=== PATIENT | female | born 1980 | race Caucasian/White ===

== ENCOUNTER 2019-06-22 16:37 | Emergency (ER) | payer BC, SELFPAY ==
[2019-06-22] VITALS (11 sets, daily range): BP systolic 96–128; BP diastolic 57–81; PULSE 53–75; RESP 8–19; TEMP 36.9; O2SAT 96–100
[2019-06-22] MEDS: Normal Saline Flush 10 ML SYR IVP ×2 (16:53→17:16)
--- NOTE | 2019-06-22 17:00 | ED.GENADUL_ITS ---
Discharge Plan Disposition Patient Disposition: HOME Condition: Stable Discharge Details Chief Complaint: Palpitatns Clinical Impression: Chest pain Primary Care Provider: Mathew Molina ED Provider: Mik Jones Home Meds and New Rx's Prescriptions: No Action No Known Home Meds RF: 0 Discharge Instructions Instructions: Chest Pain (ED) Additional Instructions: follow up with your primary care provider within a week and discuss having outpatient monitoring if symptoms continue if you feel more ill or have worsening pain, shortness of breath or abdominal pa in return to the emergency department Medical Decision Making 39 yo female who denies chronic medical problems comes in with intermittent chest pain, shortness of breath, and tunnel vision that lasts 20-30 seconds and can't think of anything that makes it come and go. Denies loc fevers or recent travel outside the country, did drive to [place] last week. She arrives hd stable and in no distress, ekg shwing frequent pvc's otherwise no ischemic findings and tele showing occasional pvc. She has no leg swelling, jvd, and normal lung and heart sounds. Her symptoms could be afib, svt less likely vtach given no loc. will evaluate for acs with troponin, heart score is 1. Wells score is moderate given PE just as likely diagnosis so will obtain CTA to eval for this and monitor for arrythmias. No tearing back pain so doubt dissection and normal vascular exam labs, imaging and tele unremarkble other than occasional pvc, remains stable. Feel she is safe for d/c and advised f/u with pcp and return precautions given Differential Diagnosis acs, pvc's, afib, pe Imaging Data Radiologic Study: Attestation: I personally reviewed and interpreted this imaging study as follows: Imaging: CT Scan Radiologist's impression: no acute findings Lab Data Lab results reviewed: Yes I reviewed the patient's lab results. ECG Data Attestation: I personally reviewed and interpreted this ECG (s) as follows: Prior ECG tracings: not available for review Interpretation: sinus rhythm, frequent pvc's, pr 138, no acute st t wave ischemic findings HPI General Mode of arrival: ambulatory . Date/Time Provider Initiated Documentation: 06/22/19 16:38 . Limitations to Documentation: no limitations . Information obtained by: patient . History of Present Illness 39 year old F presents to the emergency department with the chief complaint of chest pain, described as moderate, Quality is described as aching, Patient started experiencing this week(s) (1) and it has been intermittent. No relieving factors improve symptom(s), No exacerbating factors reported . Patient did receive the following treatments prior to arrival, none Related Data Home Medications Medication Instructions Recorded Confirmed Unknown [No Known Home Meds] 06/22/19 06/22/19 Allergies Allergy/AdvReac Type Severity Reaction Status Date / Time codeine AdvReac Unknown nausea/vomi Unverified 06/22/19 16:51 ting General Stated Complaint: Palpitatns RAVEN: 3 Review of Systems Review of Systems All systems reviewed & are unremarkable except as noted in HPI and below Constitutional Denies chills, Denies fever(s) and Denies weakness Respiratory Denies cough Gastrointestinal Denies abdominal pain, Denies nausea and Denies vomiting Musculoskeletal Denies joint swelling Integumentary/Breasts Denies rash Neurologic Denies weakness PFSH Family History Father No problems noted. Grandmother Fibrocystic breast Other Asthma Diabetes Essential hypertension Hyperlipidemia Personal history of malignant neoplasm Social History Smoking/Tobacco Use Status: Former Tobacco Use Alcohol Intake: current Alcohol Intake frequency: 0-2 drinks per day Drug use: Occasionally Substance use type: marijuana Do you feel safe at home: Yes Do you feel safe in your relationship?: Yes Exam Const General: no acute distress Orientation: alert HENMT Head: normal to inspection Ears: external ears normal General nose exam: external nose normal Mouth: moist mucous membranes Eyes General: appearance normal, both eyes and all related structures Neck Neck: normal visual inspection Resp Effort & Inspection: normal respiratory effort and able to speak in complete sentences Cardio Rate: regular rate Skin General skin exam: no rashes or lesions noted Neuro General: alert and oriented x3 Extrem General: normal to inspection Psych Mental Status: mental status grossly normal Course Vital Signs Temperature 36.9 C 06/22/19 16:44 Pulse 66 06/22/19 16:44 Respiratory Rate 8 L 06/22/19 16:44 Blood Pressure 96/64 L 06/22/19 16:44 Pulse Oximetry 98 06/22/19 16:44 Temperature 36.9 C 06/22/19 16:44 Temperature Source Temporal Artery Scan 06/22/19 16:44 Pulse 66 06/22/19 16:44 Respiratory Rate 8 L 06/22/19 16:44 Respiratory Effort Non-Labored 06/22/19 16:52 Blood Pressure 96/64 L 06/22/19 16:44 Pulse Oximetry 98 06/22/19 16:44 Oxygen Delivery Method Room Air 06/22/19 16:44 Oxygen Flow Rate 0 06/22/19 16:44 Pain Level 0 06/22/19 16:44 Lab/Test Results Lab/Test Results: POC- Test(urine) Negative
[2019-06-22 17:14] LABS: Abs Immature Grans 0.02 k/cumm (0.0-0.09); Absolute Basophil Count 0.02 k/cumm (0.0-0.2); Absolute Eosinophil Count 0.13 k/cumm (0.0-0.7); Absolute Lymphocyte Count 2.56 k/cumm (1.2-3.4); Absolute Monocyte Count 0.65 k/cumm (0.11-0.7); Absolute Neutrophil Count 4.62 k/cumm (1.2-6.7); Basophils % 0.3; Eosinophils % 1.6; HCT 43.4 % (36.0-46.0); HGB 15.1 g/dL (12.0-15.5); Immature Grans % 0.3; Mean Corp. HGB Concentration 34.8 g/dL (32.0-36.0); Mean Corpuscular Hemoglobin 31.8 pg (27.0-33.0); Mean Corpuscular Volume 91.4 fL (80-95); Mean Platelet Volume 9.4 fL (8.0-11.0); Monocytes % 8.1; Neutrophils % 57.7; Platelet Count 312 x1000/uL (130-400); RBC 4.75 m/cumm (4.00-5.20); RBC Distribution Width 12.7 % (11.7-14.6)
[2019-06-22] MEDS: Omnipaque 350 MG/ML 100 ML BTL IJ (17:15)
[2019-06-22 17:21] LABS: Prothrombin Time 9.5 sec (9.3-11.0)
--- NOTE | 2019-06-22 17:24 | DI.CT_ITS ---
SYMPTOM/DIAGNOSIS: SHORTNESS OF BREATH AND CHEST PAIN CTA CHEST: 06/22/19 CT angiography was performed with multi slice acquisition and multi planar and 3D reconstruction. CT angiography of the chest was performed with intravenous infusion of 90 cc's of Omnipaque 350. Images obtained through the upper abdomen are unremarkable. There is no evidence of pulmonary embolic disease. There is no evidence of thoracic aortic dissection or aneurysm. No mediastinal or hilar adenopathy seen. Tracheobronchial tree appears intact. No pleural effusion or pulmonary consolidation. CONCLUSION: Normal CTA chest.
[2019-06-22 17:29] LABS: ALT 29 U/L (12-78); AST 14 U/L (15-37); Albumin 4.6 g/dL (3.4-5.0); Alkaline Phosphatase 57 U/L (46-116); Anion Gap 11.5 mmol/L (3-11); BUN 16 mg/dL (7-18); Bilirubin, Total 0.4 mg/dL (0.2-1.0); CO2 27.5 mmol/L (21.0-32.0); CREATININE 0.89 mg/dL (0.55-1.02); Calcium 9.3 mg/dL (8.5-10.1); Chloride 100 mmol/L (98-107); Glucose 97 mg/dL (70-100); NT-proBNP 56 pg/mL; Potassium 3.6 mmol/L (3.5-5.1); Sodium 139 mmol/L (136-145); Total Protein 8.4 g/dL (6.4-8.2)
[2019-06-22 17:34] LABS: Troponin I < 0.05 ng/mL (0.00-0.06)
--- NOTE | 2019-06-22 17:47 | DI.VRAD_ITS ---
EXAM: CT Angiography Chest With Contrast EXAM DATE/TIME: 06/22/2019 5:00 PM CLINICAL HISTORY: 39 years old, female; Other: Shortness of breath and chest pain TECHNIQUE: Imaging protocol: Axial computed tomographic angiography images of the chest with intravenous contrast using CT angiography protocol. Coronal and sagittal reformatted images were created and reviewed. 3D rendering: MIP reconstructed images were created and reviewed. Radiation optimization: All CT scans at this facility use at least one of these dose optimization techniques: automated exposure control; mA and/or kV adjustment per patient size (includes targeted exams where dose is matched to clinical indication); or iterative reconstruction. Contrast material: OMNIPAQUE 350;Contrast volume: 90 ml;Contrast route: IV; COMPARISON: No relevant prior studies available. FINDINGS: Pulmonary arteries: Normal. No pulmonary emboli. Aorta: Unremarkable. No aortic aneurysm. No aortic dissection. Lungs: There are few tiny areas of groundglass opacity at the dependent mid lungs. Pleural space: Unremarkable. No pneumothorax. No pleural effusion. Heart: Unremarkable. No cardiomegaly. No pericardial effusion. Lymph nodes: Unremarkable. No enlarged lymph nodes. Bones/joints: Unremarkable. No acute fracture. Soft tissues: Unremarkable. IMPRESSION: Minimal bilateral atelectasis with no evidence of pulmonary emboli. Dictated and Authenticated by: Mik Deras MD. Ordering:TOBY Houser MD
== END 2019-06-22 18:27 | disposition home or self-care (01) ==
PROVIDERS: Emergency Provider Emergency Medicine; PCP Emergency Medicine
DX: R07.9 Chest pain, unspecified (principal); R00.2 Palpitations; H53.8 Other visual disturbances
CPT/HCPCS: 36415; 71275; 80053; 81025; 93005; 99285; 83735; 83880; 84484; 85025; 85610; 85730; 93010; 99284; J3490

== ENCOUNTER 2019-06-24 10:33 | Outpatient (CLI) | payer BC, SELFPAY | END 2019-06-24 10:53 | PROVIDERS: PCP Emergency Medicine; Visit Provider Emergency Medicine | DX: I49.9 Cardiac arrhythmia, unspecified (principal); I49.3 Ventricular premature depolarization; I49.1 Atrial premature depolarization | CPT/HCPCS: 93225 ==

== ENCOUNTER 2019-06-27 13:08 | Outpatient (CLI) | payer BC, SELFPAY ==
--- NOTE | 2019-06-29 13:21 | HOLTER_ITS ---
HOLTER MONITOR DATE OF DICTATION June 29, 2019 STUDY INDICATION Arrhythmias. REQUESTING PROVIDER Not available. FINDINGS The patient was monitored for two days and 32 minutes. Baseline sinus rhythm. Average heart rate 73 beats per minute, range 47 to 136 beats per minute. Rare ectopy: 18 PVCs, no VT; 8 PACs, no SVT. No pauses greater than 3 seconds. No higher degree heart block. 3 patient events. None of these events correlated with arrhythmias. FINAL INTERPRETATION No significant arrhythmias. Yo Michelle M.D. CIARRA/jace T - 06/29/2019
== END 2019-06-27 13:28 ==
PROVIDERS: PCP Emergency Medicine; Visit Provider Emergency Medicine
DX: I49.9 Cardiac arrhythmia, unspecified (principal); I49.3 Ventricular premature depolarization; I49.1 Atrial premature depolarization
CPT/HCPCS: 93226

== ENCOUNTER 2019-06-29 15:29 | Outpatient (CLI) | payer BC, SELFPAY ==
[2019-06-29 16:53] LABS: TSH 2.95 uIU/mL (0.36-3.74)
[2019-06-29 17:14] LABS: ESR 9 mm/hr (0-20)
[2019-06-29 17:42] LABS: Ferritin 96 ng/mL (8-388)
[2019-07-01 12:13] LABS: Lyme Ab w Rflx to Lyme Confirm Negative
== END 2019-06-29 15:49 ==
PROVIDERS: PCP Emergency Medicine; Visit Provider Emergency Medicine
DX: I42.9 Cardiomyopathy, unspecified (principal); M25.50 Pain in unspecified joint; R00.2 Palpitations; E03.9 Hypothyroidism, unspecified
CPT/HCPCS: 36415; 85652; 82728; 84443; 86140; 86618

== ENCOUNTER 2019-07-05 08:57 | Outpatient (CLI) | payer BC, SELFPAY ==
--- NOTE | 2019-07-05 09:00 | MERGE_ITS ---
*[facility]* *[facility]* [address] [place] [address] Date of study: 07/05/2019 Transthoracic Echocardiography M-mode, complete 2D, complete spectral Doppler, and color Doppler *STUDY CONCLUSIONS* Summary: 1. Left ventricle: The cavity size was normal. Wall thickness was at the upper limits of normal. Systolic function was normal. The estimated ejection fraction was 60-65%. Wall motion was normal; there were no regional wall motion abnormalities. 2. Right ventricle: The cavity size was normal. Systolic function was normal. 3. Inferior vena cava: The vessel was patent and normal in size. The respirophasic diameter changes were in the normal range (greater than or equal to 50%), consistent with normal central venous pressure. *PATIENT PRESENTATION* Height: 160cm (63in ) S/D Pressure: 101 / 57 Weight: 70.3kg (154.7lb ) BSA: 1.79m^2 Test start time: 09:09 AM. Test stop time: 10:00 AM. CONSULTING Mathew Molina ORDERING Mathew Molina REFERRING Mathew Molina PERFORMING Unknown PERFORMING [facility] SENIOR [employer]OPLESO[employer] DEVELOPER RT Scott RDCS (R CT) *PROCEDURE DATA* Procedure information: This study was interpreted by [facility]. Pertinent images and digital data are archived for permanent storage and are available for subsequent review. No prior study was available for comparison. Study status: Routine. Transthoracic echocardiography. M-mode, complete 2D, complete spectral Doppler, and color Doppler. A Transthoracic Echocardiogram was performed. Scanning was performed from the parasternal, apical, subcostal, and suprasternal notch acoustic windows. Images were obtained using an [id number] cardiac ultrasound machine. Image quality was adequate. Study completion: The patient tolerated the procedure well. There were no complications. History: PMH: SOB PVC's. Cardiomyopathy i42.9. *CARDIAC ANATOMY* Left ventricle: The cavity size was normal. Wall thickness was at the upper limits of normal. Systolic function was normal. The estimated ejection fraction was 60-65%. Wall motion was normal; there were no regional wall motion abnormalities. Diastolic parameters were normal. Aortic valve: Trileaflet; normal thickness leaflets. Mobility was not restricted. Doppler: Transvalvular velocity was within the normal range. There was no stenosis. There was no significant regurgitation. VTI ratio of LVOT to aortic valve: 0.77. Valve area (VTI): 2.3cm^2. Indexed valve area (VTI): 1.3cm^2/m^2. Peak velocity ratio of LVOT to aortic valve: 0.74. Valve area (Vmax): 2.2cm^2. Indexed valve area (Vmax): 1.2cm^2/m^2. Mean velocity ratio of LVOT to aortic valve: 0.73. Valve area (Vmean): 2.2cm^2. Indexed valve area (Vmean): 1.2cm^2/m^2. Mean gradient (S): 4.2mm Hg. Peak gradient (S): 6.7mm Hg. Aorta: Aortic root: The aortic root was normal in size. Ascending aorta: The ascending aorta was normal in size. Mitral valve: Structurally normal valve. Mobility was not restricted. Doppler: Transvalvular velocity was within the normal range. There was no evidence for stenosis. There was trivial regurgitation. Valve area by pressure half-time: 4.6cm^2. Indexed valve area by pressure half-time: 2.6cm^2/m^2. Peak gradient (D): 2.5mm Hg. Left atrium: The atrium was normal in size. Right ventricle: The cavity size was normal. Systolic function was normal. Pulmonic valve: The pulmonary valve appears to be grossly normal. Doppler: Transvalvular velocity was within the normal range. There was no evidence for stenosis. There was trivial regurgitation. Tricuspid valve: Structurally normal valve. Doppler: Transvalvular velocity was within the normal range. There was no evidence for stenosis. There was trivial regurgitation. Pulmonary artery: Poorly visualized. Pulmonary systolic pressure was within the normal range, in the range of 20mm Hg to 25mm Hg. Right atrium: The atrium was normal in size. Pericardium: There was no pericardial effusion. Systemic veins: Inferior vena cava: Well visualized. The vessel was patent and normal in size. The respirophasic diameter changes were in the normal range (greater than or equal to 50%), consistent with normal central venous pressure. Baseline ECG: Normal sinus rhythm. Measurements Left ventricle Value Reference LV ID, ED, PLAX 4.3 cm 3.5 - 6.0 LV ID, ES, PLAX 3.1 cm 2.1 - 4.0 LV PW thickness, ED, PLAX 1.0 cm LV end-diastolic volume, 1-p A2C 69 ml LV ejection fraction, 1-p A2C 79 % LV end-diastolic volume, 1-p A4C 78 ml LV ejection fraction, 1-p A4C 68 % LV e', lateral 0.14 m/sec LV E/e', lateral 6 LV e', medial 0.116 m/sec LV E/e', medial 7 LV e', average 0.128 m/sec LV E/e', average 6 Ventricular septum Value Reference IVS thickness, ED, PLAX 1.1 cm LVOT Value Reference LVOT ID, A-P 2.0 cm LVOT area 3 cm^2 LVOT peak velocity, S 0.96 m/sec LVOT mean velocity, S 0.73 m/sec LVOT VTI, S 21.5 cm LVOT peak gradient, S 3.7 mm Hg LVOT mean gradient, S 2.3 mm Hg Stroke volume (SV), LVOT DP 65 ml Stroke index (SV/bsa), LVOT DP 36 ml/m^2 Aortic valve Value Reference Aortic valve peak velocity, S 1.3 m/sec Aortic valve mean velocity, S 1 m/sec Aortic valve VTI, S 28.0 cm Aortic mean gradient, S 4.2 mm Hg Aortic peak gradient, S 6.7 mm Hg VTI ratio, LVOT/AV 0.77 Aortic valve area, VTI 2.3 cm^2 Velocity ratio, peak, LVOT/AV 0.74 Aortic valve area, peak velocity 2.2 cm^2 Velocity ratio, mean, LVOT/AV 0.73 Aortic valve area, mean velocity 2.2 cm^2 Aortic valve area/bsa, mean velocity 1.2 cm^2/m^2 Aorta Value Reference Aortic root ID, ED 3.2 cm Ascending aorta ID, A-P, S 3.0 cm RVOT Value Reference RVOT VTI, S 16.9 cm Left atrium Value Reference LA ID, A-P, ES 2.3 cm LA ID/bsa, A-P 1.3 cm/m^2 <=2.2 LA volume/bsa, ES, 1-p A4C 20 ml/m^2 LA volume, ES, 2-p 30 ml LA volume/bsa, ES, 2-p 17 ml/m^2 LA/aortic root ratio 0.7 Mitral valve Value Reference Mitral E-wave peak velocity 0.79 m/sec Mitral A-wave peak velocity 0.53 m/sec Mitral deceleration time 165 ms 150 - 230 Mitral pressure half-time 48 ms Mitral peak gradient, D 2.5 mm Hg Mitral E/A ratio, peak 1.47 Mitral valve area, PHT, DP 4.6 cm^2 Pulmonary veins Value Reference Pulmonary vein peak velocity, S 0.6 m/sec Pulmonary vein peak velocity, D 0.79 m/sec Pulmonary vein velocity ratio, peak, 0.76 S/D Pulmonary vein A-wave reversal peak 0.27 m/sec velocity Tricuspid valve Value Reference Tricuspid regurg peak velocity 2.3 m/sec Tricuspid peak RV-RA gradient 20.5 mm Hg Right atrium Value Reference RA area, ES, A4C 12.6 cm^2 8.3 - 19.5 Legend: (L) and (H) vimal values outside specified reference range. I have personally reviewed the images and have reviewed and edited the reported findings. Electronically signed by Jose Reagan 07/05/2019 12:17
== END 2019-07-05 09:17 ==
PROVIDERS: PCP Emergency Medicine; Visit Provider Emergency Medicine
DX: I42.9 Cardiomyopathy, unspecified (principal); R06.02 Shortness of breath; I49.3 Ventricular premature depolarization
CPT/HCPCS: 93225; 93306

== ENCOUNTER 2019-07-07 14:57 | Outpatient (CLI) | payer BC, SELFPAY ==
--- NOTE | 2019-07-08 12:08 | HOLTER_ITS ---
HOLTER MONITOR DATE OF DICTATION July 08, 2019 24-Hour Holter Monitor INDICATIONS Cardiomyopathy. Baseline sinus rhythm. Average heart rate 75 beats per minute. Minimum heart rate 52 beats per minute. Max heart rate of 130 beats per minute. Rare isolated ventricular ectopy. No nonsustained VT. Rare isolated atrial ectopy. No SVT or atrial fibrillation. No significant pauses or kenzie arrhythmias. No diary entries. Overall sinus rhythm with very rare isolated ectopy. Jose Reagan M.D. BRITTNEY/jace T - 07/08/2019
== END 2019-07-07 15:17 ==
PROVIDERS: PCP Emergency Medicine; Visit Provider Emergency Medicine
DX: I42.9 Cardiomyopathy, unspecified (principal)
CPT/HCPCS: 93226

== ENCOUNTER 2021-03-07 10:35 | Outpatient (CLI) | payer OTHER, SELFPAY ==
--- NOTE | 2021-03-07 10:30 | RT.EKG_ITS ---
APPROVED REPORT Exam: Resting ECG Patient Location: O HR:52 bpm ECG Measurements Heart Rate 52 AXIS AZ 139 P 33 QRSd 85 QRS 51 QT 428 T 30 QTc 399 Conclusion Sinus bradycardia...rate< 60 Low voltage, precordial leads...precordial leads <1.0mV
== END 2021-03-07 10:36 | disposition home or self-care (01) ==
LOC: DI.CM 10:37
PROVIDERS: PCP Emergency Medicine; Visit Provider Nurse Practitioner Family
DX: R00.2 Palpitations (principal)
CPT/HCPCS: 93010

== ENCOUNTER 2021-03-13 15:47 | Outpatient (REF) | payer OTHER, SELFPAY ==
--- NOTE | 2021-03-13 15:10 | PAPFT_PTH ---
PATIENT: Lauro Regan LOC: [facility] U#:[id number] AGE/SX: 40/F ROOM: RE03/13/[address]: Sandra Jones NP : 1980 BED: DIS: 03/13/2021 SPEC #: [id number] RECD: 03/14/21 12:39 STATUS: FRANKLIN REJoselin #: [id number] MELANI: 03/13/21 15:[address]: Sandra Jones NP DEPT: [facility] Cytology RECD BY: Belem Cabrera ENTERED: 03/14/21 12:39 SP TYPE: PAPFT OTHR DR: Mathew Molina, DO Tissues: 1 - CX/ENDOCX FOR PAP SMEARS Procedures: PAP THIN PREP/UVM Screening HPV DNA PROBE Comments: [id number]
== END 2021-03-13 15:48 | disposition home or self-care (01) ==
LOC: LBN 15:47
PROVIDERS: PCP Emergency Medicine; Visit Provider Nurse Practitioner Women's Health
DX: Z12.4 Encounter for screening for malignant neoplasm of cervix (principal); Z87.410 Personal history of cervical dysplasia; R87.612 Low grade squamous intraepithelial lesion on cytologic smear of cervix (LGSIL); Z11.51 Encounter for screening for human papillomavirus (HPV)
CPT/HCPCS: 88142; 87624

== ENCOUNTER 2021-04-04 02:38 | Outpatient (CLI) | payer OTHER, SELFPAY ==
[2021-04-04 14:22] LABS: TSH (W/Ref FT4) 0.57 uIU/mL (0.36-3.74)
[2021-04-04 18:24] LABS: FSH 24.8 mIU/mL (See Note)
== END 2021-04-04 02:39 | disposition home or self-care (01) ==
LOC: LBO 02:38
PROVIDERS: PCP Emergency Medicine; Visit Provider Nurse Practitioner Women's Health
DX: N92.5 Other specified irregular menstruation (principal); R00.2 Palpitations
CPT/HCPCS: 36415; 83001; 84443

== ENCOUNTER 2021-04-04 13:26 | Outpatient (REF) | payer OTHER, SELFPAY ==
--- NOTE | 2021-04-04 13:15 | ENDO_PTH ---
PATIENT: Lauro Regan LOC: [facility] U#:[id number] AGE/SX: 40/F ROOM: RE04/04/[address]: Syeda South DO : 1980 BED: DIS: 04/04/2021 SPEC #: [id number] RECD: 04/04/21 17:45 STATUS: FRANKLIN REQ #: [id number] MELANI: 04/04/21 13:[address]: Syeda South DEPT: Surgical Specimen RECD BY: Belem Cabrera ENTERED: 04/04/21 17:46 SP TYPE: Endo OTHR DR: Mathew Molina DO Tissues: 1 - ENDOCERVICAL BX/CURRETTE 2 - CERVICAL BIOPSY Procedures: GROSS AND MICRO LEVEL 4 Comments: [id number]
== END 2021-04-04 13:27 | disposition home or self-care (01) ==
LOC: LBN 13:26
PROVIDERS: PCP Emergency Medicine; Visit Provider Obstetrics & Gynecology
DX: R87.612 Low grade squamous intraepithelial lesion on cytologic smear of cervix (LGSIL) (principal); N87.9 Dysplasia of cervix uteri, unspecified
CPT/HCPCS: 88305

== ENCOUNTER 2021-04-22 01:37 | Outpatient (CLI) | payer OTHER, SELFPAY ==
--- NOTE | 2021-04-22 06:45 | DI.US_ITS ---
Exam(s) US PELVIS TRANSVAGINAL EXAM: US PELVIS TRANSVAGINAL CLINICAL HISTORY: Abnl uterine bleeding,frequent menstration,n92.6 TECHNIQUE: Ultrasound of the pelvis was performed both transabdominal and transvaginal. COMPARISON: Prior pelvic ultrasound 11/29/2007 was reviewed FINDINGS: UTERUS: Nongravid and anteverted Measures 8 cm length x 4.7 cm AP x 5 point cm wide. There is a small anterior fundal fibroid noted measuring approximately 10 x 6 x 7 millimeters Endometrial thickness measures 5-6 mm. There is no fluid in the endometrial canal. CERVIX: There are no obvious nabothian cysts. RIGHT OVARY: Measures 2.2 x 1.1 x 1.3 cm Contains 2 adjacent cysts. Largest measuring 13 x 11 x 12 millimeters LEFT OVARY: Measures 4.9 x 3.2 x 2.8 cm Contains a larger cyst measuring 2.9 x 2.8 x 2.7 cm. Vascular flow is demonstrated in both ovaries. CUL-DE-SAC: No free fluid evident. IMPRESSION: 1. Bilateral ovarian cysts. The largest is in the left ovary and measures 2.9 x 2.8 x 2.7 cm smaller cysts are noted in the opposite-right ovary. 2. There is a solitary 1 cm uterine fundal fibroid. Endometrial stripe thickness is within normal li mits. There is no fluid in the endometrial canal. 3. No free fluid evident in the adnexal regions and cul-de-sac. DATA REPOSITORY:
--- NOTE | 2021-04-22 09:02 | DI.MAMMO_ITS ---
Exam(s) MAMMO SCREENING EXAM: MAMMO SCREENING CLINICAL HISTORY: screening,z12.39. TECHNIQUE: Bilateral full field digital CC and MLO mammographic images were obtained with 3D tomosyn thesis and utilizing computer aided detection (CAD). COMPARISON: This baseline mammogram on this 40-year-old patient. FINDINGS: There are no significant spiculated masses nor malignant appearing microcalcification groups. There is no significant architectural distortion nor skin thickening-retraction. IMPRESSION: No radiographic evidence of malignancy. BI-RADS Category 1 - Negative Breast Density - Category B - Scattered areas of fibroglandular density Breast density Category C or D implies that the patient has dense breast tissue. Dense breast tissue can make it harder to find cancer on a mammogram. Dense breast tissue is also associated with an incr eased risk of breast cancer. This information about the result of the mammogram report was provided to the patient to raise their awareness. Use this report when you speak with the patient about their risks for breast cancer, which includes their family history. At that time, you may recommend additional screening tests (Ultrasoun d or MRI) as these tests may add significant information. A negative radiographic report should not delay biopsy if a dominant or clinically suspicious mass is present. Up to ten percent of cancers are not identified on mammography. A negative report may reinforce clinical impression. Adenosis and dense breasts may obscure an underlying neoplasm. False positive reports average 6 to 10%. Patient will receive a letter notifying them of these results.
== END 2021-04-22 01:57 ==
PROVIDERS: PCP Emergency Medicine; Visit Provider Nurse Practitioner Women's Health
DX: Z12.31 Encounter for screening mammogram for malignant neoplasm of breast (principal); N92.6 Irregular menstruation, unspecified; N93.8 Other specified abnormal uterine and vaginal bleeding; N83.291 Other ovarian cyst, right side; N83.292 Other ovarian cyst, left side; D25.9 Leiomyoma of uterus, unspecified
CPT/HCPCS: 77063; 77067; 76830; 76856

== ENCOUNTER 2021-05-06 09:48 | Outpatient (RCR) | payer OTHER, SELFPAY ==
--- NOTE | 2021-05-06 15:45 | HOLTER_ITS ---
APPROVED REPORT Conclusion This is a 48-hour Holter monitor ordered for the indication of palpitations. Patient was in normal sinus rhythm for the majority recording with an average heart rate of 70 bpm. There were no episodes of ventricular tachycardia and rare PVCs. There was one episode of supraventricular tachycardia lasting a total of 5 beats. This episode was s ymptomatic. There were rare PACs. There were no episodes of atrial fibrillation, no pauses greater than 3 seconds and no evidence of hi gh degree heart block. There were 5 patient triggered events. One was associated with a single episode of SVT and another w ith a singular PAC.
== END 2021-05-08 23:59 | disposition home or self-care (01) ==
LOC: RT 09:48
PROVIDERS: PCP Emergency Medicine; Visit Provider Internal Medicine Cardiovascular Disease
DX: R00.2 Palpitations (principal); I47.1 Supraventricular tachycardia; I47.2 Ventricular tachycardia; I49.1 Atrial premature depolarization
CPT/HCPCS: 93225; 93226

== ENCOUNTER 2021-10-11 06:24 | Day surgery (SDC) | payer OTHER, SELFPAY ==
--- NOTE | 2021-10-10 17:03 | PDOC.DSDIS_ITS ---
Discharge Plan Disposition Patient Disposition: HOME Condition: Good Discharge Details Reason For Visit: colon scope Attending Provider: Cat Muniz Primary Care Provider: Mathew Molina Home Meds and New Rx's Prescriptions: Continued metoprolol succinate [Toprol XL] 25 mg tablet extended release 24 hr 12.5 mg PO DAILY Qty: 45 RF: 4 ibuprofen 200 mg tablet 400 mg PO Q6H PRNRF: 0 Discontinued bisacodyl [Dulcolax (bisacodyl)] 5 mg tablet,delayed release (DR/EC) 5 mg PO ONCE Qty: 4 RF: 0 Discharge Instructions Additional Instructions: DSU Colonoscopy Post- Op Instructions Instructions for Everyone who is given Anesthesia: For your safety, please do the following for the next twenty-four (24) hours: *Do Not operate a motor vehicle (car, truck, motorcycle, etc.) *Do Not drink alcoholic beverages or use any recreational drugs for the first 24 hours or while taking pain medications. The medications in your body may have a reaction that can be dangerous. *Do Not make any important decisions or sign any important papers. Findings: Normal Follow up:Repeat CE every 5 yrs secondary to family Hx 1. No lifting over 20 pounds or strenuous activity for the first 24 hours after your procedure. After 24 hours there are no restrictions on your activity but you may feel fatigued for a few days. 2. After you arrive home you may have a light meal and return to your normal di et as you can tolerate it without feeling sick to your stomach. 3. You may have a bloated, gaseous feeling in your belly (abdomen) after a colonoscopy. Passing gas and belching will help. Walking or lying down on your left side with your knees flexed may relieve the discomfort. Call the office at [phone] (Office) or [phone] (Hospital) right away if you notice any of the following: a.Vomiting of blood or ?coffee ground stools?. b.Rectal bleeding 1Tbsp, blood clots or continuous bleeding. c.Severe belly (abdominal) pain. d.A hard distended belly (abdomen) and an inability to pass gas. 4. Please don?t expect to have a normal BM (bowel movement) for 2-3 days after your procedure. 5. If there are questions regarding the findings of your procedure, please contact your doctor 6. If you are unable to contact your doctor with a problem, contact the hospital at [phone]. 7. Continue all your regular medications unless directed otherwise. I understand the above instructions and have no questions. Signature of Patient or Adult Escort Name of Responsible Adult Escort Signature of Nurse Date/Time Activity:: see above Diet:: see above Discharge Orders Discharge Orders: Discharge Order (Routine); Ordered 10/10/21 Ordered By: Cat Muniz DS: Diagnosis Discharge Diagnosis (1) Family history of malignant neoplasm of colon in first degree relative diagnosed when younger than 60 years of age: Status: Acute (2) IBS (irritable bowel syndrome): Status: Chronic
--- NOTE | 2021-10-10 17:06 | W.COLOREPORT ---
Colonoscopy Report Date of procedure: 10/11/21 Pre-op diagnosis general: family hx of CRC <60/IBS Surgeon: Cat Muniz Anesthesia Type: General:No Airway Prep: Miralax/Dulcolax Retraction Time: 8 Procedure Description: After informed consent was obtained the patient was taken to the procedure room and placed in a left decubitous position. Monitors were applied and a time out was done. The patients name, date of , procedure, allergies to medications and metal in their body was reviewed. The patient was then sedated. Once sedated and comfortable a rectal exam was done. External exam was normal. Internal exam revealed a normal sphincter tone and no palpable masses. The scope was then introduced and retrofelexed. No internal hemorrhoids were identified. The scope was then advanced to the cecum w/out difficulty. The TI and appendiceal orifice were identified. The prep was . The scope was then slowly retracted over 8 minutes back into the rectum. There are no polyps or AVMs. The mucosa is pink and healthy. She is starting to develop diverticula in the sigmoid colon. The scope was removed and the patient was woken up and taken back to Same day surgery in stable condition. The patient tolerated the procedure well and there were no immediate complications. Follow up: The patient should follow up in 5 years, unless they develop changes in bowel habits or other new gastrointestinal complaints.
[2021-10-11 06:28] VITALS: BP 108/66; PULSE 66; RESP 16; TEMP 36.3; O2SAT 98
[2021-10-11] MEDS: Lactated Ringers 1,000 ML 80 ML IV (06:59)
--- NOTE | 2021-10-11 07:02 | ANES.PREOP_ITS ---
General Info Date of Service Date Performed: 10/11/21 Height: 5 ft 3 in Weight: 75.4 kg Body Mass Index (BMI): 29.4 Surgical Procedure: Operation Date: 10/11/21 07:35 Proposed Procedures Side Surgeon cam Muniz DO Pre-Op Diagnosis Post-Op Diagnosis IBS Meds Allergies and Home Medications Allergies Allergy/AdvReac Type Severity Reaction Status Date / Time codeine AdvReac Intermediate nausea/vomi Verified 10/11/21 06:41 ting Home Medication Medication Instructions Recorded metoprolol succinate 25 mg 12.5 mg PO DAILY #45 tab 10/07/19 tablet,extended release 24 hr ibuprofen 200 mg tablet 400 mg PO Q6H PRN tab 09/27/21 Current Visit Medications: Current Medications Generic Name Dose Route Start Last Admin Trade Name Freq PRN Reason Stop Dose Admin Hyoscyamine Sulfate 0.125 mg 10/10/21 17:02 Hyoscyamine 0.125 Mg Sl/Oral/Chew SL DIRECTED PRN Ringer's Solution 1,000 mls @ 80 mls/hr 10/11/21 06:00 10/11/21 06:59 IV 11/09/21 23:59 80 mls/hr INFUSION HEBERT Administration IV Miscellaneous Supplies 1 each 10/11/21 06:00 Iv Access IV 11/09/21 23:59 DIRECTED HEBERT Ondansetron HCl 4 mg 10/10/21 17:02 Ondansetron 4 Mg/2 Ml Vial IVP Q4H PRN PRN Nausea / Vomiting Sodium Chloride 0 ml 10/11/21 06:00 Normal Saline Flush 10 Ml Syr IV 11/09/21 23:59 PRN PRN Sodium Chloride 0 ml 10/11/21 06:00 Normal Saline 10 Ml Vial IJ 11/09/21 23:59 DIRECTED PRN Sterile Water 0 ml 10/11/21 06:00 Water,Injection,Sterile 10 Ml Vial IJ 11/09/21 23:59 DIRECTED PRN PFSH Active Problems Active Problems: Problem Status Onset Code IBS (irritable bowel syndrome) K58.9 Primary insomnia 07/10/16 F51.01 Personal history of cervical dysplasia 08/26/13 Z87.410 LGSIL (low grade squamous intraepithelial dysplasia) History of surgical procedure Z98.890 History of appendectomy Z90.49 Family history of malignant neoplasm of colon in first degree relative diagnosed when younger than 60 years of age 0907/10/16 Z80.0 Cervical intraepithelial neoplasia grade III with severe dysplasia 10/27/11 D06.9 TIARA II (cervical intraepithelial neoplasia II) N87.1 Anxiety 07/10/16 F41.9 Status post LEEP (loop electrosurgical excision procedure) of cervix Z98.890 Palpitations R00.2 Menstrual abnormality N92.6 Colon cancer screening Z12.11 PVCs (premature ventricular contractions) I49.3 Medical History Active Problem List IBS (irritable bowel syndrome) (Chronic) Primary insomnia (Acute 07/10/16) Personal history of cervical dysplasia (Acute 08/26/13) LGSIL (low grade squamous intraepithelial dysplasia) (Acute) History of surgical procedure (Acute) History of appendectomy (Acute) Family history of malignant neoplasm of colon in first degree relative diagnosed when younger than 60 years of age (Acute 07/10/16) Cervical intraepithelial neoplasia grade III with severe dysplasia (Acute 10/27/11) TIARA II (cervical intraepithelial neoplasia II) (Acute) Anxiety (Acute 07/10/16) Status post LEEP (loop electrosurgical excision procedure) of cervix (Acute) Palpitations (Acute) Menstrual abnormality (Acute) Colon cancer screening (Acute) PVCs (premature ventricular contractions) (Acute) Medical History Cat scratch fever 1983 TIARA II (cervical intraepithelial neoplasia II) TIARA III (cervical intraepithelial neoplasia III) IBS (irritable bowel syndrome) Medical History Comments:: Pt. states her grandfather has a real hard time going full under anesthesia. Pt. also states she is a hard IV stick, [facility] has gone into my foot x2 Surgical History Surgical History Appendectomy (~1995) Cervical Conization/LEEP Colonoscopy - IV Sedation Hysteroscopy Tobacco Smoking/Tobacco Use Status: Former Tobacco Use Alcohol Alcohol Intake: current Alcohol intake frequency: 0-2 drinks per day Substance Use Substance use: Occasionally Substance use type: marijuana Prental History History 1 Para 1 Hx # Term Pregnancies Multiple births Hx # Pregnancies Ectopic pregnancies AB induced Hx Number of Living Children AB spontaneous Vital Signs and Lab Results Vital Signs Most Recent Vital Signs in EMR: Most Recent Vital Signs Temp Pulse Resp BP Pulse Ox 36.3 C L 66 16 108/66 98 10/11/21 06:28 10/11/21 06:28 10/11/21 06:28 10/11/21 06:28 10/11/21 06:28 Point of Care Results Point of Care Results: POC- Test(urine) Negative 10/11/21 06:40 Lab Results Blood Type / Crossmatch: No Data to Display Complete Blood Count: No Data to Display Complete Metabolic Panel: No Data to Display Liver Function Panel: No Data to Display Coagulation Panel: No Data to Display Cardiac Panel: No Data to Display Arterial Blood Gas: No Data to Display Venous Blood Gas: No Data to Display Pancreas Panel: No Data to Display Thyroid Panel: No Data to Display Infectious Disease: No Data to Display Blood Cultures: No Data to Display Toxicology Panel: No Data to Display Panel: No Data to Display Imaging and Studies Imaging and Studies EKG Summary: Conclusion Sinus bradycardia...rate< 60 03/07/21 Echocardiogram Summary: STUDY CONCLUSIONS* Summary: 1. Left ventricle: The cavity size was normal. Wall thickness was at the upper limits of normal. Systolic function was normal. The estimated ejection fraction was 60-65%. Wall motion was normal; there were no regional wall motion abnormalities. 2. Right ventricle: The cavity size was normal. Systolic function was normal. 3. Inferior vena cava: The vessel was patent and normal in size. The respirophasic diameter changes were in the normal range (greater than or equal to 50%), consistent with normal central venous pressure. 07/05/19 Anesthesia Assessment and Plan Anesthesia History Personal History: No History of Anesthesia Complications Family History: Other (Grandfather awareness under anesthesia) Exercise Tolerance Exercise Tolerance: Metabolic Equivalents>4 Pertinent Negatives Pertinent Negatives: No Symptoms of GERD, No Major Cardiovascular Symptoms or Complaints, No Major Pulmonary Symptoms or Complaints and No History of CVA/TIA Cardiac & Pulmonary Exam Cardiac Exam: Normal S1/S2 Heart Sounds Pulmonary Exam: Clear Bilateral Breath Sounds Implantable Cardiac Device Does patient have a Pacemaker or an ICD?: No Airway Exam Known Difficult Airway: No Mallampati Class: 1 Mouth Opening: Normal (> 3cm) Thyromental Distance: Greater than 3 cm Neck Range of Motion: Full ROM Neck Circumference: Normal Teeth Condition: Normal Dentition ASA Classification ASA Score: ASA 2 Emergency Case?: No NPO Status NPO Status: NPO Clears >2 hours, Solids >8 hours Status Status: Negative HCG Anesthesia Plan Resuscitation Status: Full Code Anesthesia Technique: General Anesthesia Airway Planned: Natural Airway Monitors Used: Standard Monitors
[2021-10-11 07:22] VITALS: BMI 29.4
[2021-10-11 08:01] VITALS: BP 93/54; PULSE 64; RESP 16; TEMP 36.4; O2SAT 98
--- NOTE | 2021-10-11 08:13 | W.ANESPOSTOP ---
Postoperative Evaluation Date, Time and Location Date Performed: 10/11/21 Time Performed: 08:13 Patient Location: Day Surgery Unit Vital Signs Most Recent Imported Vital Signs: Most Recent Vital Signs Temp Pulse Resp BP Pulse Ox 36.4 C L 64 16 93/54 L 98 10/11/21 08:01 10/11/21 08:01 10/11/21 08:01 10/11/21 08:01 10/11/21 08:01 Pain Score Most Recent Pain Score: Most Recent Pain Score Pain Level 0 10/11/21 08:01 Assessment Mental Status: Awake (Alert & Oriented to Patient Baseline) Airway and Respiratory Function: Patent airway with normal (patient baseline) respiratory exam Cardiovascular Function: Hemodynamically Stable Hydration Status: Adequately Hydrated Nausea & Vomiting: No Nausea or Vomiting Pain: Pt. Denies Any Pain Peripheral Nerve Block: Patient did not receive a nerve block
[2021-10-11 08:29] VITALS: BP 107/70; PULSE 56; RESP 16; TEMP 36.4; O2SAT 100
== END 2021-10-11 08:44 | disposition home or self-care (01) ==
LOC: SUR 06:25
PROVIDERS: PCP Emergency Medicine; Visit Provider Surgery
PROC: 0DJD8ZZ Inspection of Lower Intestinal Tract, Via Natural or Artificial Opening Endoscopic (ICD-10-PCS; CPT 45378; principal; 2021-10-11 07:30)
DX: Z12.11 Encounter for screening for malignant neoplasm of colon (principal); Z80.0 Family history of malignant neoplasm of digestive organs; K58.9 Irritable bowel syndrome, unspecified
CPT/HCPCS: 45378; 81025; J2001

== ENCOUNTER 2024-07-22 11:15 | Outpatient (REF) | payer OTHER, SELFPAY ==
--- NOTE | 2024-07-22 09:30 | PAPFT_PTH ---
PATIENT: Lauro Regan LOC: [facility] U#:[id number] AGE/SX: 44/F ROOM: RE07/22/[address]: Clover Antonio : 1980 BED: DIS: 07/22/2024 SPEC #: [id number] RECD: 07/22/24 12:37 STATUS: [place] PANDA #: [id number] MELANI: 07/22/24 09:[address]: Clover Antonio DEPT: [facility] Cytology RECD BY: Belem Cabrera ENTERED: 07/22/24 12:37 SP TYPE: PAPFT OT DR: Adrien Petersen, ALIS Tissues: 1 - CX/ENDOCX FOR PAP SMEARS Procedures: PAP THIN PREP/[facility] Screening HPV DNA PROBE Comments: [id number]
== END 2024-07-22 11:16 | disposition home or self-care (01) ==
LOC: LBN 11:15
PROVIDERS: PCP Nurse Practitioner Family; Visit Provider Obstetrics & Gynecology Gynecology
DX: Z30.9 Encounter for contraceptive management, unspecified (principal); Z12.39 Encounter for other screening for malignant neoplasm of breast; Z01.419 Encounter for gynecological examination (general) (routine) without abnormal findings
CPT/HCPCS: 88142; 87624

== ENCOUNTER 2025-06-12 08:44 | Outpatient (REF) | payer OTHER, SELFPAY ==
[2025-06-13 12:21] LABS: HSV 1 DNA Result Negative (Negative); HSV 2 DNA Result Negative (Negative)
== END 2025-06-12 08:45 | disposition home or self-care (01) ==
LOC: LBN 08:44
PROVIDERS: PCP Nurse Practitioner Family; Visit Provider Obstetrics & Gynecology
DX: N90.89 Other specified noninflammatory disorders of vulva and perineum (principal)
CPT/HCPCS: 87529

== ENCOUNTER 2025-07-27 16:00 | Outpatient (REF) | payer OTHER, SELFPAY | END 2025-07-27 16:01 | disposition home or self-care (01) | LOC: LBN 16:00 | PROVIDERS: PCP Nurse Practitioner Family; Visit Provider Obstetrics & Gynecology | DX: Z12.4 Encounter for screening for malignant neoplasm of cervix (principal) | CPT/HCPCS: 88142; 87624 ==